=== PATIENT | female | born 1955 | race Caucasian/White ===

== ENCOUNTER 2016-10-23 16:18 | Emergency (ER) | payer BC ==
[~2016-10-23] VITALS: Ht 170.2 cm; Wt 78.0 kg
[2016-10-23 16:21] VITALS: Ht 170.2 cm; Wt 78.0 kg
[2016-10-23] MEDS ORDERED: morphine 4 MG/ML VIAL IV STA ×2 (16:26→16:55)
[2016-10-23] MEDS ORDERED: SOD CHLORIDE 0.9% 1,000 ML IV STA (16:26)
[2016-10-23] MEDS ORDERED: ONDANSETRON 4 MG INJ IV STA (16:26)
[2016-10-23] MEDS ORDERED: ACETAMINOPHEN/CODEINE #3 TAB PO ONE (17:00)
[2016-10-23] MEDS ORDERED: HYDROmorphONE 1 MG/ML SYG IV STA (17:14)
--- NOTE | 2016-10-23 17:30 | RADRPT ---
PROCEDURE: Left wrist radiographs. CLINICAL INDICATION: Trauma. Left wrist pain. TECHNIQUE: Four views. Frontal, lateral, and obliques. COMPARISON: No prior studies are available for comparison. FINDINGS: There are acute transverse fractures through the distal metaphysis of the radius and ulna. There is marked posterior displacement of the fracture fragments with angulation measuring 80 degrees. Ther e is marked overriding of the fracture fragments. There is soft tissue swelling overlying the fractures. The fracture extends to the distal articular surface of the radius. The articular surfaces are othe rwise intact. There is no lytic or blastic lesion. There is no radiopaque foreign body. IMPRESSION: 1. Acute fractures through the distal radius and ulna with marked posterior displacement, overridin g, and angulation. RPTAT: QQ .Luiz Moody MD, Date Time Electronically viewed and signed by .Luiz Moody MD, on 10/23/2016 17:30 .R/
[2016-10-23] MEDS: PROPOFOL 200 MG INJ IV ONE ×2 (17:35→17:40)
--- NOTE | 2016-10-23 18:38 | RADRPT ---
PROCEDURE: XR Wrist. CLINICAL INDICATION: Post fracture reduction TECHNIQUE: AP, lateral and oblique views of the left wrist were performed. COMPARISON: 10/23/2016 FINDINGS: Previously seen posterior displacement of the distal radial and distal ulna fractures has been parti ally reduced, persistent dorsal angulation of the distal radial fracture is present. There is a sma ll amount of persistent dorsal angulation of the distal ulna fracture. There has been interval cast ing about the left wrist. RPTAT:HJJR IMPRESSION: Interval partial displacement reduction and casting involving the distal radial and ulnar fractures of the left wrist when compared to earlier the same day. Physician Marni Date Time Electronically viewed and signed by Physician Marni on 10/23/2016 18:37 JR/
--- NOTE | 2016-10-23 18:55 | ERD ---
ER Documentation Chief Complaint Date/Time DATE: 10/23/16 TIME: 18:50 Chief Complaint LEFT WRIST DISLOCATION/ INJURY AFTER A FALL NO KO HPI This is a 60-year-old female who presents to the emergency room for evaluation of left-sided wrist pain. The patient states that she was getting out of the shower and slipped backwards and fell on her wrist. She states that she heard a pop and is having pain in her left wrist. The patient states that she noticed a deformity, and her daughters called [phone] 1 the patient was subsequently transported to the emergency room for further evaluation. The patient denies any numbness or tingling in her hand. ROS All systems reviewed and are negative except as per history of present illness. Medications Home Meds No Active Prescriptions or Reported Meds Allergies Allergies: Coded Allergies: acetaminophen (Unverified Allergy, Unknown, 10/23/16) codeine (Unverified Allergy, Unknown, 10/23/16) nitrofurantoin (Unverified Allergy, Unknown, 10/23/16) sulfamethoxazole (Unverified Allergy, Unknown, 10/23/16) trimethoprim (Unverified Allergy, Unknown, 10/23/16) PMhx/Soc Medical and Surgical Hx: pt denies Medical Hx, pt denies Surgical Hx History of Surgery: No Anesthesia Reaction: No Hx Neurological Disorder: No Hx Respiratory Disorders: No Hx Cardiac Disorders: No Hx Psychiatric Problems: No Hx Miscellaneous Medical Probl: No Hx Alcohol Use: No Hx Substance Use: No Hx Tobacco Use: No Smoking Status: Never smoker Physical Exam Vitals Vital Signs Date Time Temp Pulse Resp B/P Pulse Ox O2 Delivery O2 Flow Rate FiO2 10/23/16 18:30 80 16 128/71 100 Room Air 10/23/16 18:15 72 16 131/80 100 Nasal Cannula 2.0 10/23/16 18:00 83 18 134/90 100 Room Air 10/23/16 17:48 15.0 10/23/16 17:44 78 20 132/73 100 Room Air 10/23/16 17:38 89 18 138/84 100 Room Air 10/23/16 16:21 97.8 82 18 125/61 97 Physical Exam INITIAL VITAL SIGNS: Reviewed by me GENERAL: The patient is well developed and appropriate for usual state of health in no apparent distress HEENT: Pupils equal, round, and reactive to light. EOMI. There is no scleral icterus. NECK: C-spine is soft and supple, there is no meningismus. There is no cervical lymphadenopathy. LUNGS: Clear to auscultation bilaterally. There are no rales, wheezes or rhonchi. HEART: Regular rate and rhythm, no murmurs, clicks, rubs or gallops. ABDOMEN: Soft, non-tender, non-distended. There are bowel sounds in all four quadrants. No rebound or guarding. EXTREMITIES: Visible deformity of the left lower wrist with severe dorsal angulation of the wrist, cap refill less than 3 seconds in the hand, palpable ulnar and radial pulses. Sensation intact in the hand NEUROLOGICAL: The patient moves all four extremities with 5/5 strength. Cranial nerves II - XII are intact. Normal gait. Alert and oriented SKIN: There is no apparent rash or petechiae. HEME/LYMPHATIC: There is no evidence of excessive bruising or lymphedema. PSYCHIATRIC: The patient does not appear anxious or depressed. Results 24 hrs Current Medications Medications (Trade) Dose Ordered Sig/Quin Route PRN Reason Start Time Stop Time Status Last Admin Dose Admin Morphine Sulfate 4 mg 4 mg ONCE STAT IV 10/23/16 16:26 10/23/16 16:38 DC Sodium Chloride (NS) 1,000 ml @ 1,000 mls/hr Q1H STAT IV 10/23/16 16:26 10/23/16 17:25 DC 10/23/16 16:39 Ondansetron HCl (Zofran Inj) 4 mg ONCE STAT IV 10/23/16 16:26 10/23/16 16:28 DC 10/23/16 16:39 Acetaminophen/ Codeine Phosphate (Tylenol No.3) 1 tab ONCE ONCE PO 10/23/16 17:00 10/23/16 17:01 DC Morphine Sulfate (morphine) 4 mg ONCE STAT IV 10/23/16 16:55 10/23/16 16:56 DC 10/23/16 17:00 Hydromorphone HCl (Dilaudid) 1 mg ONCE STAT IV 10/23/16 17:14 10/23/16 17:15 DC 10/23/16 17:19 Propofol (Diprivan) 100 mg ONCE ONCE IV 10/23/16 17:30 10/23/16 17:31 DC Ibuprofen (Motrin) 600 mg ONCE ONCE PO 10/23/16 19:00 10/23/16 19:01 10/23/16 18:45 Procedures/MDM X-ray Wrist 3V Interpreted by me: Scaphoid: [Normal] Bones: Acute fractures through the distal radius and ulna with marked posterior displacement, overriding, and angulation Joints: [No dislocation] Foreign body: [None] X-ray Wrist 3V Interpreted by me: Scaphoid: [Normal] Bones: Interval partial displacement reduction and casting involving the distal radial and ulnar fractures of the left wrist when compared to earlier the same day. Joints: [No dislocation] Foreign body: [None] This 60-year-old female presents to the ER for evaluation of left wrist pain after a ground-level fall. When I evaluated this patient's wrist I did not a gross deformity of the left wrist with severe angulation. She was neurovascularly intact. The patient did have a fracture through the distal radius and ulna. The patient underwent conscious sedation and had a fracture reduction. Please see notes below. I spoke to this patient and her daughters multiple times in the stated that they have a surgeon that would like to see, Dr. Keene. I spoke with him on the phone and he agrees that he would like to see the patient in the morning and office. The patient and the patient's family members are okay with the plan of care. The patient is neurovascularly intact after reduction. The patient will be discharged home with a prescription for Motrin, [place] for breakthrough pain with instructions to follow -up with her surgeon tomorrow morning. This patient had disks made of her x- rays and will be sent home with her discs. Procedural Sedation: Pre-assessment performed. See preceding complete history and physical for details. Time out performed. See sedation documentation for details. Medication(s): 100 mg propofol Complications: No hypoxic or apneic events Recovered without incident. Greater than 15 minutes of face to face time included in sedation and recovery. Reduction by me: Anesthesia: 100 mg propofol Location: Left wrist Technique: Gentle traction and manipulation Results: Sikh of normal anatomic positioning Neurovascularly intact post procedure. [Splint Assessment: Neurovascularly intact post splint placement with good fit.] Departure Diagnosis: Primary Impression: Left wrist fracture Additional Impressions: Distal radius fracture, left Ulna distal fracture Condition: Stable VÍCTOR ARREDONDO DO Oct 23, 2016 18:55
[2016-10-23] MEDS ORDERED: IBUP-1542 PO (18:57)
[2016-10-23] MEDS ORDERED: HYDR-906 PO (18:57)
[2016-10-23] MEDS ORDERED: ONDA4TAB8 PO (18:57)
[2016-10-23] MEDS ORDERED: IBUPROFEN 600 MG TAB PO ONE (19:00)
[2016-10-23] MEDS ORDERED: ONDANSETRON (ODT) 4 MG TAB ODT STA (19:10)
[2016-10-23 19:17] VITALS: BP 122/71; PULSE 76; RESP 16; TEMP 98.2
== END 2016-10-23 19:35 | disposition home or self-care (01) ==
LOC: E/R 16:18
DX: S52.692A Other fracture of lower end of left ulna, initial encounter for closed fracture (principal); S52.592A Other fractures of lower end of left radius, initial encounter for closed fracture; W18.2XXA Fall in (into) shower or empty bathtub, initial encounter; Y92.9 Unspecified place or not applicable
CPT/HCPCS: 25565; 73110; 96374; 96375; 99285; J1170; J2270; J2405; J7030